=== PATIENT | male | born 1950 | race Caucasian/White ===

== ENCOUNTER → 2019-12-29 08:59 | Outpatient (BNVA) | payer MEDICARE, OTHER, SELFPAY | PROVIDERS: PCP Internal Medicine; Referring Provider Otolaryngology; Visit Provider Specialist | DX: R13.10 Dysphagia, unspecified (principal); R20.0 Anesthesia of skin; R13.13 Dysphagia, pharyngeal phase; M62.549 Muscle wasting and atrophy, not elsewhere classified, unspecified hand; E11.319 Type 2 diabetes mellitus with unspecified diabetic retinopathy without macular edema; Z79.4 Long term (current) use of insulin; Z87.891 Personal history of nicotine dependence | CPT/HCPCS: 95910; 99204 ==

== ENCOUNTER 2020-01-14 08:53 | Outpatient (CLI) | payer MEDICARE, OTHER, SELFPAY | END 2020-01-14 08:54 | disposition home or self-care (01) | LOC: RADSHAW 08:55 | PROVIDERS: PCP Internal Medicine; Visit Provider Specialist | DX: Z76.89 Persons encountering health services in other specified circumstances (principal) ==

== ENCOUNTER 2020-01-14 11:36 | Outpatient (CLI) | payer MEDICARE, OTHER, SELFPAY ==
--- NOTE | 2020-01-14 12:12 | CT_ITS ---
WS: [id number] CT HEAD TECHNIQUE: Noncontrast CT of the head obtained from the skullbase to the vertex. CLINICAL INFORMATION: DYSPHAGIA COMPARISON: None. DLP: 912.[address] scans at [facility] use at least one of these dose optimization techniques: automat ed exposure control; mA and/or kV adjustment per patient size (includes targeted exams where dose is matched to clinical indication); or iterative reconstruction. FINDINGS: No evidence of intracranial hemorrhage or mass effect. Ventricular system and basal cisterns are patel nt. Mild small vessel changes with moderate parenchymal volume loss. No extra-axial fluid collections . Mild polypoid mucosal thickening in the frontal sinuses and ethmoid air cells. Retention cyst or poly p right sphenoid sinus measuring 12 mm. Mucosal thickening in the sphenoid sinus. Postoperative charles es both Orbits. Intracranial vascular calcification. CT/CT head wo con* [id number] IMPRESSION: 1. No evidence of intracranial hemorrhage or mass effect. 2. Mild small vessel changes. Moderate parenchymal volume loss. 3. Mild polypoid mucosal thickening in the paranasal sinuses. Retention cyst o r polyp right sphenoid sinus measuring 12 mm. 4. Dense intracranial vascular calcification.
== END 2020-01-14 11:37 | disposition home or self-care (01) ==
PROVIDERS: PCP Internal Medicine; Visit Provider Specialist
DX: R13.19 Other dysphagia (principal); J34.1 Cyst and mucocele of nose and nasal sinus
CPT/HCPCS: 70450

== ENCOUNTER → 2023-01-29 14:11 | Outpatient (BNVA) | payer MEDICARE, OTHER, SELFPAY | PROVIDERS: Visit Provider Specialist | DX: G23.2 Striatonigral degeneration (principal); R13.10 Dysphagia, unspecified; G20 Parkinson's disease; F02.80 Dementia in other diseases classified elsewhere, unspecified severity, without behavioral disturbance, psychotic disturbance, mood disturbance, and anxiety | CPT/HCPCS: 99215 ==

== ENCOUNTER → 2023-05-24 09:15 | Outpatient (BNVA) | payer MEDICARE, OTHER, SELFPAY | PROVIDERS: PCP Internal Medicine Infectious Disease; Visit Provider Specialist | DX: G24.3 Spasmodic torticollis (principal); G23.2 Striatonigral degeneration | CPT/HCPCS: 64616; J0585 ==

== ENCOUNTER → 2023-08-09 13:09 | Outpatient (BNVA) | payer MEDICARE, OTHER, SELFPAY | PROVIDERS: PCP Internal Medicine Infectious Disease; Visit Provider Specialist | DX: G23.2 Striatonigral degeneration (principal); G24.3 Spasmodic torticollis | CPT/HCPCS: 99213 ==

== ENCOUNTER → 2023-08-23 13:08 | Outpatient (BNVA) | payer MEDICARE, OTHER, SELFPAY | PROVIDERS: PCP Internal Medicine Infectious Disease; Visit Provider Specialist | DX: G23.2 Striatonigral degeneration (principal); G24.3 Spasmodic torticollis; E10.40 Type 1 diabetes mellitus with diabetic neuropathy, unspecified | CPT/HCPCS: 64616; 99213; J0585 ==